=== PATIENT | male | born 1960 | race Caucasian/White ===

== ENCOUNTER 2016-07-31 22:48 | Emergency (ER) | payer SELFPAY ==
--- NOTE | 2016-08-01 06:30 | DIAGNOSTIC IMAGING REPORT ---
PROCEDURE: CTA THORAX WITH CONTRAST INDICATION: Left-sided chest pain, initial encounter TECHNIQUE: 90 ml of Isovue 370 was injected intravenously and axial images were obtained of the entire thorax with 3D sagittal and coronal MIP reconstructions. COMPARISON: Chest x-ray 08/01/2016 FINDINGS: No evidence of pulmonary emboli. Small left lower lobe consolidation with small left pleural effusion. Minor right basilar atelectasis. Mild left hilar adenopathy. 1.1 cm left thyroid nodule. Normal aorta without dissection or aneurysm. No coronary atherosclerosis. Heart size is normal. Normal visualized abdomen. Mild degenerative changes of the spine. IMPRESSION: 1. Left lower lobe pneumonia with small left pleural effusion 2. No evidence of pulmonary emboli 3. Results discussed with Dr. Gooden
--- NOTE | 2016-08-01 06:31 | DIAGNOSTIC IMAGING REPORT ---
PROCEDURE: XR CHEST 2 VIEW INDICATION: CHEST PAIN, initial encounter TECHNIQUE: PA and lateral view. COMPARISON: None. FINDINGS: Poor inspiration with small posterior left lower lobe infiltrate. Mild right basilar atelectasis. Cardiovascular structures are normal. Bony thorax is unremarkable. IMPRESSION: 1. Poor inspiration 2. Small left lower lobe infiltrate/atelectasis
--- NOTE | 2016-08-01 09:03 | ED CLINICAL REPORT ---
Clinical Report - Physicians/Mid Levels [facility] [address] [place] [address] 07/31/2016 22:50 Patient: NAYA KRUSE Time Seen: 23:14 Jul 31 2016. Arrived- By private vehicle. Historian- patient. CPT: ER phys charges level 5 plus (#[id number]). EKG interpretation (#[id number]). HISTORY OF PRESENT ILLNESS Chief Complaint: CHEST PAIN. At its maximum, severity described as moderate. When seen in the E.D., severity described as mild. Modifying factors. Not worsened by anything. Not relieved by anything. 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 ( sharp pain, crampy in nature. feels pressure like he has to move bowels but has done so today). He has had difficulty breathing and nausea. No sweating episodes, vomiting, fever or cough. and is still present. Onset during light activity. It is described as pressure, sharp and "pain" and it is described as located in the central chest and left chest area, substernal area and left arm. The patient has had difficulty breathing. Similar symptoms previously: None. Recent medical care: Not recently seen/assessed. REVIEW OF SYSTEMS No fever, chills, cough, pedal edema or calf pain. No fainting episodes, sore throat, blurred vision, abdominal pain or black stools. No difficulty with urination, skin rash, enlarged lymph nodes or joint pain. All systems otherwise negative, except as recorded above. PAST HISTORY No history of heart disease, lung disease, renal disease, neurological disease or other disease. No history of hypertension, hyperlipidemia or diabetes mellitus. Problems: no known problems. Additional Surgeries: no known surgeries. Medications: None. Allergies: Penicillins. SOCIAL HISTORY Never smoker. FAMILY HISTORY History of heart disease in multiple family members. ADDITIONAL NOTES The nursing notes have been reviewed. PHYSICAL EXAM Vital Signs: 07/31/2016 22:53 BP: 188/104. HR: 80. RR: 18. O2 saturation: 99%. Temp: 98.4 F. Appearance: Alert. No acute distress. Eyes: Pupils equal, round and reactive to light. Eyes normal inspection. ENT: Ears normal. Nose normal. Pharynx normal. Neck: Normal inspection. Neck supple. CVS: Normal heart rate and rhythm. Heart sounds normal. Pulses normal. Respiratory: No respiratory distress. Breath sounds normal. Chest nontender. Abdomen: Soft and nontender. Bowel sounds normal. Back: Normal external inspection. Skin: Skin warm. Normal skin color. No rash. Extremities: Extremities exhibit normal ROM. No calf tenderness. No lower extremity edema. Neuro: Oriented X 3. No motor deficit. No sensory deficit. Reflexes normal. LABS, X-RAYS, AND EKG Chest CT: Infiltrate in the left lower lobe. Chest CT performed with contrast. The study was independently viewed by me, interpreted by the radiologist and discussed with the radiologist. Laboratory Tests: Troponin-I: (JAY: 08/01/2016 03:45) ( [facility] [place]01[place] 04:08) Final results Test Result Flag Units (Reference) TROPONIN I <0.05 L ng/mL (0.00-1.5) TROPONIN REFERENCE RANGE:<0.1 NEGATIVE0.1-1.5 INDETERMINANT>1.5 POSITIVE CBC w Diff: (JAY: 07/31/2016 23:05) ( [facility] [place] 07/31/2016 23:44) Final results Test Result Flag Units (Reference) WHITE BLOOD COUNT 6.6 K/uL (4.5-11.5) RED BLOOD COUNT 5.13 M/uL (4.50-5.90) HEMOGLOBIN 14.2 gm/dL (13.5-17.5) HEMATOCRIT 44.1 % (41.0-53.0) MEAN CELL VOLUME 86 fL (80-100) MEAN CORPUSCULAR HGB 28 pg (26-34) MEAN CORPUSCULAR HGB CONC 32 g/dL (31-37) RED CELL DISTRIBUTION WIDTH 12.9 % (11.6-14.8) PLATELET COUNT 223 K/uL (150-400) LYMPH % 32.0 % (25-40) MONO % 3.2 % (3-14) GRANULOCYTE % 64.8 PT with INR: (JAY: 07/31/2016 23:05) ( [facility] [place] 07/31/2016 23:51) Final results Test Result Flag Units (Reference) INR 0.9 (0.8-1.2) Low Intensity Therapy: INR 1.5-2.0 PT range 18.5-23.1Mod.Intensity Therapy: INR 2.0-3.0 PT range 23.1-31.5High Intensity Therapy: INR 2.5-3.5 PT range 27.4-35.5High Intensity Therapy 2: INR 3.0-4.0 PT range 31.5-39.3 APTT 33 SECONDS (24-34) D-DIMER QUANTITATIVE 0.27 ug/mLFEU (0.27-0.52) The primary value of this quantitative assay relates toits negative predictive value (i.e. exclusion) of pulmonaryembolism/deep vein thrombosis/DIC.Elevated levels of d-dimer may also occur with:, age, cancer, inflammation, liver disease,post-op, infection, hematoma, coronary disease, peripheralarteriopathy, bleeding disorders and thrombolytic treatment.Results should be correlated with other clinical andradiological data.Testing Methodology: Latex Immunoassay BNP: (JAY: 07/31/2016 23:05) ( [facility] [place] 07/31/2016 23:56) Final results Test Result Flag Units (Reference) B-TYPE NATRIURETIC PEPTIDE 17 pg/ml (5-100) Lipase: (JAY: 07/31/2016 23:05) ( [facility] 08/01/2016 00:05) Final results Test Result Flag Units (Reference) LIPASE 125 U/L (73-393) AMYLASE 63 U/L (25-115) THYROID STIMULATING HORMONE 1.553 uIU/mL (0.30-3.74) C-REACTIVE PROTEIN 0.2 mg/dL (0.0-0.9) CHEM 13 PANEL: (JAY: 07/31/2016 23:05) ( [facility] 07/31/2016 23:56) Final results Test Result Flag Units (Reference) GLUCOSE 104 mg/dL (70-110) BUN 13 mg/dL (7-18) CREATININE 1.1 mg/dL (0.6-1.3) Estimated GFR >60 mL/min Estimated GFR- >60 mL/min Note: Persistent reduction over 3 months in eGFR<60 mL/min/1.73 m2 defines CKD. Patients with eGFR values>=60 mL/min/1.73 m2 may also have CKD if evidence ofpersistent proteinuria. Additional information may be foundat www.kidney.org. SODIUM 141 mmol/L (136-145) POTASSIUM 3.6 mmol/L (3.5-5.1) CHLORIDE 103 mmol/L (98-107) CARBON DIOXIDE 35 H mmol/L (21-32) CALCIUM 8.5 mg/dL (8.5-10.1) TOTAL PROTEIN 7.4 g/dL (6.4-8.2) ALBUMIN 4.1 g/dL (3.3-5.0) BILIRUBIN, TOTAL 0.4 mg/dL (0.0-1.0) ALKALINE PHOSPHATASE 74 U/L (46-116) AST (SGOT) 23 U/L (15-37) ALT (SGPT) 40 U/L (12-78) CPK 102 U/L (24-260) MAGNESIUM 2.1 mg/dL (1.8-2.4) TROPONIN I <0.05 L ng/mL (0.00-1.5) TROPONIN REFERENCE RANGE:<0.1 NEGATIVE0.1-1.5 INDETERMINANT>1.5 POSITIVE . PROGRESS AND PROCEDURES Course of Care: 08:42 08/01/16. Pt pain resolved after the toradol injection suggesting a musculoskeletal source for the pain. Troponin times 2 negative and EKG unchanged times 2. CT chest did r/o dissection and chest pathology. Due to abnormal EKG, Dr Villa, Cardiology called and case discussed. Dr Villa agrees with present treatment and will get patient in early next week for a ETT. Discussed LLL infiltrate with the patient and he remembers being told he had that in the past. He does not have cough or fever. Will cover for now and have PCP follow up. Discussed case with on-call health care provider, (Allen). Reviewed test results and need for additional work-up. Agreed upon treatment plan. Health care provider will see patient in office. Patient/family counseled. Disposition: Discharged. Condition: stable and improved. CLINICAL IMPRESSION Atypical chest pain .12 lead EKG performed. Abnormal EKG Left lower lobe infiltrate of unclear etiology. INSTRUCTIONS (Take an aspirin once a day.). Prescription Medications: Doxycycline 100 mg: Take 1 capsule orally every 12 hours for 10 days. No refill. Follow-up: Return to the emergency department if not well. 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 Wednesday. Understanding of the discharge instructions verbalized by patient. (Electronically signed by David Gooden MD 08/02/2016 21:54)
--- NOTE | 2016-08-01 09:03 | ED NURSING NOTES ---
Clinical Report - Nurses [facility] [address] [place] [address] 07/31/2016 22:50 Patient: NAYA KRUSE TRIAGE Triage time 22:53 Jul 31 2016. Acuity: LEVEL 3. Chief Complaint: CHEST PAIN and LEFT ARM PAIN, UPPER ABDOMINAL PAIN and SHORTNESS OF BREATH. 22:53 07/31/16. SEPSIS SCREEN: Sepsis Screen. Negative (no infection suspected/documented). --22:58 Taylor Danielle R.N. 22:53 07/31/16. BP: 188/104. HR: 80. RR: 18. O2 saturation: 99%. Temp: 98.4 F. Pain level now 6/10. --22:58 Taylor Danielle R.N. Weight: 90.7 kg stated. Height/Length: 70 inches Per Patient. BMI: 28.7. --22:52 Taylor Danielle R.N. Medications None. --22:54 Taylor Danielle R.N. Medication/allergy information source: the patient. --22:58 Taylor Danielle R.N. Allergies Penicillins. --22:54 Taylor Danielle R.N. History Arrived by private vehicle. Historian: patient. Accompanied by family. Onset. (3 hours ago). ( sharp pain, crampy in nature. feels pressure like he has to move bowels but has done so today). He has had difficulty breathing and nausea. No sweating episodes, vomiting, fever or cough. 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 PAST MEDICAL HX: Has not received pneumonia vaccine or seasonal influenza immunization. SOCIAL HX: Never smoker. No alcohol use or drug use. No infectious disease exposure. ABUSE ASSESSMENT: No report of abuse. SELF HARM ASSESSMENT: A self harm assessment was performed. The patient answered "no" to the question "Have you recently felt down, depressed, or hopeless?", "Have you noticed less interest or pleasure in doing things?", "Do you have thoughts of harming or killing yourself?", "Are you here because you tried to hurt yourself?", "Have you ever tried to hurt yourself before today?", "Have you recently had thoughts about harming or killing others?" and "Do you have any dangerous items in your possession?". FALL RISK ASSESSMENT: Fall risk assessment completed. No fall risk identified. NUTRITIONAL RISK ASSESSMENT: The nutritional risk assessment revealed no deficiencies. FUNCTIONAL ASSESSMENT: Functional assessment: no impairments noted. LEARNING NEEDS ASSESSMENT: The learning needs assessment revealed no barriers. SKIN INTEGRITY ASSESSMENT: Skin integrity risk assessment completed. No skin integrity risk identified. --22:58 Taylor Danielle R.N. PROBLEMS: no known problems. ADDITIONAL SURGERIES: no known surgeries. Interventions ID band on patient. --22:58 Taylor Danielle R.N. PHYSICAL ASSESSMENT 07:45 FIRST CONTACT WITH PT. --10:26 Ashlee Rivero R.N. 07:45. GENERAL / NEURO / PSYCH: Alert. Oriented X 4. Appears in no acute distress. RESPIRATORY: Respirations not labored. SKIN: Skin is warm and dry. --10:27 sAhlee Rivero R.N. NURSING PROGRESS NOTES 22:59 07/31/16. The initial plan of care for this patient includes an assessment with efforts to address the presence of pain; impairment of the cardiovascular system. This plan of care was discussed with the patient and family. satellite project site monitor, pulse oximeter and NIBP monitor placed on patient; manager cardiac- Lead II; monitor alarms on. Patient gowned. Reassurance given. Two patient identifiers checked. Side rails up x 1. Patient ready for evaluation. --22:59 Taylor Danielle R.N. EKG time: (2304 PM). EKG was ordered, performed by a tech and shown to the ED physician. --23:11 Sarah Beth Rosen 23:08 07/31/2016 Site #1 started via IV in the right antecubital space with an 18g angiocath, with aseptic technique and good blood return; one attempt. Blood drawn: rainbow set. Labeled in the presence of the patient and sent to the lab. Saline lock flushed with 10 mL saline. --23:13 RossOctoberLucy 23:51 07/31/16. BP: 156/90. HR: 64. RR: 18. O2 saturation: 99%. Pain level now 12/02. --23:51 Taylor Danielle R.N. 23:51 07/31/16. Cardiac rhythm: normal sinus rhythm. The patient is resting quietly. RESPIRATORY: Breath sounds normal. CVS: Normal sinus rhythm noted. SKIN: Skin is warm and dry. Skin color within normal limits. --23:51 Taylor Danielle R.N. Care transferred and report received (from DIANA Vazquez). --01:14 Lanette Noel R.N. 02:06 08/01/16. BP: 156/95. HR: 60. RR: 18 (unlabored). O2 saturation: 98% on room air. Pain level now: 10/02. --02:32 Lanette Noel R.N. 02:06 pt waiting for x-ray. --02:32 Lanette Noel R.N. 02:40 08/01/2016 Aspirin PO 325 mg given. Allergies verified and confirmed 5 rights. --02:40 Filiberto Bess R.N. 02:43 08/01/2016 Toradol IVP 30 mg given over 2 minute(s) via site #1. Allergies verified and confirmed 5 rights. IV patency established. IV site checked: no pain, redness, or swelling. IV flushed thoroughly pre- and post-medication administration. IVP given by RN. --02:43 Filiberto Bess R.N. 03:45 repeat troponin drawn from IV site. labeled in front of pt and sent to lab. --03:58 Lanette Noel R.N. EKG time: (0445 AM). EKG was ordered, performed by a tech and shown to the ED physician. --04:47 Sarah Beth Rosen 03:00 08/01/16. BP: 157/88. HR: 54. RR: 18. O2 saturation: 97% on room air. --05:04 Lanette Noel R.N. 04:10 08/01/16. BP: 173/80. HR: 60. RR: 18 (unlabored). O2 saturation: 97% on room air. Pain level now: 10/02. --05:05 Lanette Noel R.N. 04:10 pt waiting for repeat troponin result. pt continues to c/o chest pain 10/02. --05:06 Lanette Noel R.N. 04:45 08/01/16. BP: 166/90. HR: 57. RR: 18 (unlabored). O2 saturation: 96% on room air. Pain level now: 09/04. --05:07 Lanette Noel R.N. 05:[address] scan, states chest pain down to a 09/04. --05:08 Lanette Noel R.N. Patient transported to CT by stretcher with tech. --05:39 Lanette Noel R.N. Patient returned from CT by stretcher with tech. --05:49 Lanette Noel R.N. 05:00 08/01/16. BP: 168/86. HR: 64. RR: 18 (unlabored). O2 saturation: 97% on room air. --07:10 Lanette Noel R.N. 06:[address] results. pt denies pain at this time. --07:11 Lanette Noel R.N. 06:03 08/01/16. BP: 159/104. HR: 70. RR: 18 (unlabored). O2 saturation: 96% on room air. Pain level now: . --07:11 Lanette Noel R.N. Care transferred and report given (DIANA Rosado). --07:11 Lanette Noel R.N. 07:45 08/01/16. BP: 160/90. HR: 54. RR: 12. O2 saturation: 96% on room air. Pain level now: unknown. --07:47 Ashlee Rivero R.N. The patient is resting quietly. Overall patient status is the same- he states feels the same. RESPIRATORY: No respiratory distress. CVS: Cardiac rhythm: sinus bradycardia. SKIN: Skin is warm and dry. --07:47 Ashlee Rivero R.N. 09:20. The patient is calm and resting quietly. Overall patient status is improved- he states feels the same. RESPIRATORY: No respiratory distress. SKIN: Skin is warm and dry. --10:23 Ashlee Rivero R.N. 09:20 08/01/2016 Site #1 removed upon discharge. Catheter intact. Bandaid applied. --10:24 Ashlee Rivero R.N. DISPOSITION / DISCHARGE Departure time: 919. Condition at departure: improved and stable. No learning barriers present. Discharge instructions provided and reviewed with the patient. Reviewed medication(s). Prescription(s) given to the patient. Patient verbalized understanding. Written instructions provided in [place]. The patient was discharged home. He left the Emergency Department ambulatory and via private vehicle. FALL RISK ASSESSMENT: Fall risk assessment completed. No fall risk identified. --10:23 Ashlee Rivero R.N. 09:20 08/01/16. BP: 158/89. HR: 54. RR: 16. O2 saturation: 97% on room air. Pain level now: 08/04. --10:23 Ashlee Rivero R.N. Locked/Released at 08/01/2016 10:28 by Ashlee Rivero R.N.
--- NOTE | 2016-08-01 09:03 | ED ORDER SUMMARY ---
..... Patient: NAYA KRUSE OrderSheet [facility] VisitID: [id number] [address] [place] [address] 55y, M Registration Date/Time: 07/31/2016 ORDER SHEET Weight: 90.7 kg (stated) Allergies: Penicillins GENERAL ORDERS: Computer System Specialist (Continuous) (23:07/31/2016 EIndershay R.N. verbal order read back to Jessi COLLIER) (23:14 ABarnum R.N.) Pulse oximeter (23:07/31/2016 EIndershay R.N. verbal order read back to Jessi COLLIER) (23:14 Dungrntej R.N.) EKG - ER Stat (23:07/31/2016 Ashia R.N. verbal order read back to Jessi COLLIER) (23:08 CHagerty ER Microstrategy Architect Developer) Cardiac Panel Stat (23:07/31/2016 Jessi COLLIER) (23:30 CHagerty ER Microstrategy Architect Developer) PT with INR Urgent (23:29 07/31/2016 Jessi COLLIER) (23:30 CHagerty ER Microstrategy Architect Developer) PTT Urgent (23:29 07/31/2016 Jessi COLLIER) (23:30 CHagerty ER Microstrategy Architect Developer) BNP Urgent (23:29 07/31/2016 Jessi COLLIER) (23:30 CHagerty ER Microstrategy Architect Developer) D-Dimer Urgent (23:29 07/31/2016 Jessi COLLIER) (23:30 CHagerty ER Microstrategy Architect Developer) Amylase Urgent (23:29 07/31/2016 Jessi COLLIER) (23:30 CHagerty ER Microstrategy Architect Developer) Lipase Urgent (23:29 07/31/2016 Jessi COLLIER) (23:30 CHagerty ER Microstrategy Architect Developer) TSH Urgent (23:07/31/2016 Jessi COLLIER) (23:30 CHagerty ER Microstrategy Architect Developer) CRP Urgent (23:07/31/2016 Jessi COLLIER) (23:30 CHagerty ER Microstrategy Architect Developer) Chest 2V Urgent (02:16 08/01/2016 Jessi COLLIER) (Ack 2:18 CHagerty ER Microstrategy Architect Developer) (2:29 [place]) Troponin-I Urgent (03:28 08/01/2016 HKone R.N. verbal order read back to Jessi COLLIER) (Ack 3:45 CHagerty ER Microstrategy Architect Developer) (4:36 HKone R.N.) EKG - ER Stat (04:32 08/01/2016 Jessi COLLIER) (4:48 CHagerty ER Microstrategy Architect Developer) CTA Thorax w Cont (No) (N/A) Urgent (04:47 08/01/2016 Jessi COLLIER) (Ack 4:49 CHagerty ER Microstrategy Architect Developer) (5:50 CHagerty ER Microstrategy Architect Developer) MEDICATION ORDERS: Aspirin PO 325 mg (NOW) (02:20 08/01/2016 Jessi COLLIER) (Ack 2:32 HKone R.N.) (2:40 DBeyer R.N.) IV FLUIDS: IV Saline Lock (23:07 07/31/2016 Ashia R.NJordan verbal order read back to Jessi COLLIER) (23:14 ABarnum R.N.) Toradol IV 30 mg (NOW) (02:40 08/01/2016 Jessi COLLIER) (2:44 DBeyer R.N.) Toradol IV 30 mg (NOW) (02:41 08/01/2016 DBeyer R.N. verbal order read back to Jessi COLLIER) (2:43 DBeyer R.N.) ORDER SHEET NOTES: [Electronically signed by Ashlee Rivero R.N. (10:28 08/01/2016)] [Electronically signed by David Gooden MD (21:54 08/02/2016)] [Electronically locked/signed by Ashlee Rivero R.N. (10:28 08/01/2016)]
--- NOTE | 2016-08-01 09:03 | ED CLINICAL REPORT ---
Clinical Report - Physicians/Mid Levels [facility] [address] [place] [place] [address] 07/31/2016 22:50 Patient: NAYA KRUSE Time Seen: 23:14 Jul 31 2016. Arrived- By private vehicle. Historian- patient. CPT: ER phys charges level 5 plus (#[id number]). EKG interpretation (#[id number]). HISTORY OF PRESENT ILLNESS Chief Complaint: CHEST PAIN. At its maximum, severity described as moderate. When seen in the E.D., severity described as mild. Modifying factors. Not worsened by anything. Not relieved by anything. 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 ( sharp pain, crampy in nature. feels pressure like he has to move bowels but has done so today). He has had difficulty breathing and nausea. No sweating episodes, vomiting, fever or cough. and is still present. Onset during light activity. It is described as pressure, sharp and "pain" and it is described as located in the central chest and left chest area, substernal area and left arm. The patient has had difficulty breathing. Similar symptoms previously: None. Recent medical care: Not recently seen/assessed. REVIEW OF SYSTEMS No fever, chills, cough, pedal edema or calf pain. No fainting episodes, sore throat, blurred vision, abdominal pain or black stools. No difficulty with urination, skin rash, enlarged lymph nodes or joint pain. All systems otherwise negative, except as recorded above. PAST HISTORY No history of heart disease, lung disease, renal disease, neurological disease or other disease. No history of hypertension, hyperlipidemia or diabetes mellitus. Problems: no known problems. Additional Surgeries: no known surgeries. Medications: None. Allergies: Penicillins. SOCIAL HISTORY Never smoker. FAMILY HISTORY History of heart disease in multiple family members. ADDITIONAL NOTES The nursing notes have been reviewed. PHYSICAL EXAM Vital Signs: 07/31/2016 22:53 BP: 188/104. HR: 80. RR: 18. O2 saturation: 99%. Temp: 98.4 F. Appearance: Alert. No acute distress. Eyes: Pupils equal, round and reactive to light. Eyes normal inspection. ENT: Ears normal. Nose normal. Pharynx normal. Neck: Normal inspection. Neck supple. CVS: Normal heart rate and rhythm. Heart sounds normal. Pulses normal. Respiratory: No respiratory distress. Breath sounds normal. Chest nontender. Abdomen: Soft and nontender. Bowel sounds normal. Back: Normal external inspection. Skin: Skin warm. Normal skin color. No rash. Extremities: Extremities exhibit normal ROM. No calf tenderness. No lower extremity edema. Neuro: Oriented X 3. No motor deficit. No sensory deficit. Reflexes normal. LABS, X-RAYS, AND EKG Chest CT: Infiltrate in the left lower lobe. Chest CT performed with contrast. The study was independently viewed by me, interpreted by the radiologist and discussed with the radiologist. Laboratory Tests: Troponin-I: (JAY: 08/01/2016 03:45) ( [facility] Final results Test Result Flag Units (Reference) TROPONIN I <0.05 L ng/mL (0.00-1.5) TROPONIN REFERENCE RANGE:<0.1 NEGATIVE0.1-1.5 INDETERMINANT>1.5 POSITIVE CBC w Diff: (JAY: 07/31/2016 23:05) ( [facility] 07[facility] 23:44) Final results Test Result Flag Units (Reference) WHITE BLOOD COUNT 6.6 K/uL (4.5-11.5) RED BLOOD COUNT 5.13 M/uL (4.50-5.90) HEMOGLOBIN 14.2 gm/dL (13.5-17.5) HEMATOCRIT 44.1 % (41.0-53.0) MEAN CELL VOLUME 86 fL (80-100) MEAN CORPUSCULAR HGB 28 pg (26-34) MEAN CORPUSCULAR HGB CONC 32 g/dL (31-37) RED CELL DISTRIBUTION WIDTH 12.9 % (11.6-14.8) PLATELET COUNT 223 K/uL (150-400) LYMPH % 32.0 % (25-40) MONO % 3.2 % (3-14) GRANULOCYTE % 64.8 PT with INR: (JAY: 07/31/2016 23:05) ( [facility] 23:51) Final results Test Result Flag Units (Reference) INR 0.9 (0.8-1.2) Low Intensity Therapy: INR 1.5-2.0 PT range 18.5-23.1Mod.Intensity Therapy: INR 2.0-3.0 PT range 23.1-31.5High Intensity Therapy: INR 2.5-3.5 PT range 27.4-35.5High Intensity Therapy 2: INR 3.0-4.0 PT range 31.5-39.3 APTT 33 SECONDS (24-34) D-DIMER QUANTITATIVE 0.27 ug/mLFEU (0.27-0.52) The primary value of this quantitative assay relates toits negative predictive value (i.e. exclusion) of pulmonaryembolism/deep vein thrombosis/DIC.Elevated levels of d-dimer may also occur with:, age, cancer, inflammation, liver disease,post-op, infection, hematoma, coronary disease, peripheralarteriopathy, bleeding disorders and thrombolytic treatment.Results should be correlated with other clinical andradiological data.Testing Methodology: Latex Immunoassay BNP: (JAY: 07/31/2016 23:05) ( [facility] 23:56) Final results Test Result Flag Units (Reference) B-TYPE NATRIURETIC PEPTIDE 17 pg/ml (5-100) Lipase: (JAY: 07/31/2016 23:05) ( [facility] 08/01/2016 00:05) Final results Test Result Flag Units (Reference) LIPASE 125 U/L (73-393) AMYLASE 63 U/L (25-115) THYROID STIMULATING HORMONE 1.553 uIU/mL (0.30-3.74) C-REACTIVE PROTEIN 0.2 mg/dL (0.0-0.9) CHEM 13 PANEL: (JAY: 07/31/2016 23:05) ( [facility] 07/31/2016 23:56) Final results Test Result Flag Units (Reference) GLUCOSE 104 mg/dL (70-110) BUN 13 mg/dL (7-18) CREATININE 1.1 mg/dL (0.6-1.3) Estimated GFR >60 mL/min Estimated GFR- >60 mL/min Note: Persistent reduction over 3 months in eGFR<60 mL/min/1.73 m2 defines CKD. Patients with eGFR values>=60 mL/min/1.73 m2 may also have CKD if evidence ofpersistent proteinuria. Additional information may be foundat www.kidney.org. SODIUM 141 mmol/L (136-145) POTASSIUM 3.6 mmol/L (3.5-5.1) CHLORIDE 103 mmol/L (98-107) CARBON DIOXIDE 35 H mmol/L (21-32) CALCIUM 8.5 mg/dL (8.5-10.1) TOTAL PROTEIN 7.4 g/dL (6.4-8.2) ALBUMIN 4.1 g/dL (3.3-5.0) BILIRUBIN, TOTAL 0.4 mg/dL (0.0-1.0) ALKALINE PHOSPHATASE 74 U/L (46-116) AST (SGOT) 23 U/L (15-37) ALT (SGPT) 40 U/L (12-78) CPK 102 U/L (24-260) MAGNESIUM 2.1 mg/dL (1.8-2.4) TROPONIN I <0.05 L ng/mL (0.00-1.5) TROPONIN REFERENCE RANGE:<0.1 NEGATIVE0.1-1.5 INDETERMINANT>1.5 POSITIVE . PROGRESS AND PROCEDURES Course of Care: 08:42 08/01/16. Pt pain resolved after the toradol injection suggesting a musculoskeletal source for the pain. Troponin times 2 negative and EKG unchanged times 2. CT chest did r/o dissection and chest pathology. Due to abnormal EKG, Dr Villa, Cardiology called and case discussed. Dr Villa agrees with present treatment and will get patient in early next week for a ETT. Discussed LLL infiltrate with the patient and he remembers being told he had that in the past. He does not have cough or fever. Will cover for now and have PCP follow up. Discussed case with on-call health care provider, (Allen). Reviewed test results and need for additional work-up. Agreed upon treatment plan. Health care provider will see patient in office. Patient/family counseled. Disposition: Discharged. Condition: stable and improved. CLINICAL IMPRESSION Atypical chest pain .12 lead EKG performed. Abnormal EKG Left lower lobe infiltrate of unclear etiology. INSTRUCTIONS (Take an aspirin once a day.). Prescription Medications: Doxycycline 100 mg: Take 1 capsule orally every 12 hours for 10 days. No refill. Follow-up: Return to the emergency department if not well. Follow up with a community marketing manager they will call you on Wednesday to schedule your treadmill. Wednesday. Understanding of the discharge instructions verbalized by patient. (Electronically signed by David Gooden MD 08/02/2016 21:54)
--- NOTE | 2016-08-01 09:03 | ED ORDER SUMMARY ---
..... Patient: NAYA KRUSE OrderSheet [facility] VisitID: [id number] [address] [place] [address] 55y, M Registration Date/Time: 07/31/2016 ORDER SHEET Weight: 90.7 kg (stated) Allergies: Penicillins GENERAL ORDERS: Hydrologic Modeler (Continuous) (23:07/31/2016 EIndersahy R.N. verbal order read back to Jessi COLLIER) (23:14 ABarnum R.N.) Pulse oximeter (23:07/31/2016 EIndershay R.N. verbal order read back to Jessi COLLIER) (23:14 Dungrntej R.N.) EKG - ER Stat (23:07/31/2016 Ashia R.N. verbal order read back to Jessi COLLIER) (23:08 CHagerty ER Bpm Developer) Cardiac Panel Stat (23:07/31/2016 Jessi COLLIER) (23:30 CHagerty ER Bpm Developer) PT with INR Urgent (23:29 07/31/2016 Jessi COLLIER) (23:30 CHagerty ER Bpm Developer) PTT Urgent (23:29 07/31/2016 Jessi COLLIER) (23:30 CHagerty ER Bpm Developer) BNP Urgent (23:29 07/31/2016 Jessi COLLIER) (23:30 CHagerty ER Bpm Developer) D-Dimer Urgent (23:29 07/31/2016 Jessi COLLIER) (23:30 CHagerty ER Bpm Developer) Amylase Urgent (23:29 07/31/2016 Jessi COLLIER) (23:30 CHagerty ER Bpm Developer) Lipase Urgent (23:29 07/31/2016 Jessi COLLIER) (23:30 CHagerty ER Bpm Developer) TSH Urgent (23:07/31/2016 Jessi COLLIER) (23:30 CHagerty ER Bpm Developer) CRP Urgent (23:07/31/2016 Jessi COLLIER) (23:30 CHagerty ER Bpm Developer) Chest 2V Urgent (02:16 08/01/2016 Jessi COLLIER) (Ack 2:18 CHagerty ER Bpm Developer) (2:29 Madsion) Troponin-I Urgent (03:28 08/01/2016 HKone R.N. verbal order read back to Jessi COLLIER) (Ack 3:45 CHagerty ER Bpm Developer) (4:36 HKone R.N.) EKG - ER Stat (04:32 08/01/2016 Jessi COLLIER) (4:48 CHagerty ER Bpm Developer) CTA Thorax w Cont (No) (N/A) Urgent (04:47 08/01/2016 Jessi COLLIER) (Ack 4:49 CHagerty ER Bpm Developer) (5:50 CHagerty ER Bpm Developer) MEDICATION ORDERS: Aspirin PO 325 mg (NOW) (02:20 08/01/2016 Jessi COLLIER) (Ack 2:32 HKone R.N.) (2:40 DBeyer R.N.) IV FLUIDS: IV Saline Lock (23:07 07/31/2016 Ashia R.NJordan verbal order read back to Jessi COLLIER) (23:14 ABarnum R.N.) Toradol IV 30 mg (NOW) (02:40 08/01/2016 Jessi COLLIER) (2:44 DBeyer R.N.) Toradol IV 30 mg (NOW) (02:41 08/01/2016 DBeyer R.N. verbal order read back to Jessi COLLEIR) (2:43 DBeyer R.N.) ORDER SHEET NOTES: [Electronically signed by Ashlee Rivero R.N. (10:28 08/01/2016)] [Electronically signed by David Gooden MD (21:54 08/02/2016)] [Electronically locked/signed by Ashlee Rivero R.N. (10:28 08/01/2016)]
--- NOTE | 2016-08-01 09:03 | ED NURSING NOTES ---
Clinical Report - Nurses [facility] [address] [place] [address] 07/31/2016 22:50 Patient: NAYA KRUSE TRIAGE Triage time 22:53 Jul 31 2016. Acuity: LEVEL 3. Chief Complaint: CHEST PAIN and LEFT ARM PAIN, UPPER ABDOMINAL PAIN and SHORTNESS OF BREATH. 22:53 07/31/16. SEPSIS SCREEN: Sepsis Screen. Negative (no infection suspected/documented). --22:58 Taylor Danielle R.N. 22:53 07/31/16. BP: 188/104. HR: 80. RR: 18. O2 saturation: 99%. Temp: 98.4 F. Pain level now 6/10. --22:58 Taylor Danielle R.N. Weight: 90.7 kg stated. Height/Length: 70 inches Per Patient. BMI: 28.7. --22:52 Taylor Danielle R.N. Medications None. --22:54 Taylor Danielle R.N. Medication/allergy information source: the patient. --22:58 Taylor Danielle R.N. Allergies Penicillins. --22:54 Taylor Danielle R.N. History Arrived by private vehicle. Historian: patient. Accompanied by family. Onset. (3 hours ago). ( sharp pain, crampy in nature. feels pressure like he has to move bowels but has done so today). He has had difficulty breathing and nausea. No sweating episodes, vomiting, fever or cough. Treatment CLINICAL ASST: None. PAST MEDICAL HX: Has not received pneumonia vaccine or seasonal influenza immunization. SOCIAL HX: Never smoker. No alcohol use or drug use. No infectious disease exposure. ABUSE ASSESSMENT: No report of abuse. SELF HARM ASSESSMENT: A self harm assessment was performed. The patient answered "no" to the question "Have you recently felt down, depressed, or hopeless?", "Have you noticed less interest or pleasure in doing things?", "Do you have thoughts of harming or killing yourself?", "Are you here because you tried to hurt yourself?", "Have you ever tried to hurt yourself before today?", "Have you recently had thoughts about harming or killing others?" and "Do you have any dangerous items in your possession?". FALL RISK ASSESSMENT: Fall risk assessment completed. No fall risk identified. NUTRITIONAL RISK ASSESSMENT: The nutritional risk assessment revealed no deficiencies. FUNCTIONAL ASSESSMENT: Functional assessment: no impairments noted. LEARNING NEEDS ASSESSMENT: The learning needs assessment revealed no barriers. SKIN INTEGRITY ASSESSMENT: Skin integrity risk assessment completed. No skin integrity risk identified. --22:58 Taylor Danielle R.N. PROBLEMS: no known problems. ADDITIONAL SURGERIES: no known surgeries. Interventions ID band on patient. --22:58 Taylor Danielle R.N. PHYSICAL ASSESSMENT 07:45 FIRST CONTACT WITH PT. --10:26 Ashlee Rivero R.N. 07:45. GENERAL / NEURO / PSYCH: Alert. Oriented X 4. Appears in no acute distress. RESPIRATORY: Respirations not labored. SKIN: Skin is warm and dry. --10:27 Ashlee Rivero R.N. NURSING PROGRESS NOTES 22:59 07/31/16. The initial plan of care for this patient includes an assessment with efforts to address the presence of pain; impairment of the cardiovascular system. This plan of care was discussed with the patient and family. monitor technician, pulse oximeter and NIBP monitor placed on patient; vehicle monitor technician- Lead II; monitor alarms on. Patient gowned. Reassurance given. Two patient identifiers checked. Side rails up x 1. Patient ready for evaluation. --22:59 Taylor Danielle R.N. EKG time: (2304 PM). EKG was ordered, performed by a tech and shown to the ED physician. --23:11 Sarah Beth Rosen 23:08 07/31/2016 Site #1 started via IV in the right antecubital space with an 18g angiocath, with aseptic technique and good blood return; one attempt. Blood drawn: rainbow set. Labeled in the presence of the patient and sent to the lab. Saline lock flushed with 10 mL saline. --23:13 RossOctoberLucy 23:51 07/31/16. BP: 156/90. HR: 64. RR: 18. O2 saturation: 99%. Pain level now 12/02. --23:51 Taylor Danielle R.N. 23:51 07/31/16. Cardiac rhythm: normal sinus rhythm. The patient is resting quietly. RESPIRATORY: Breath sounds normal. CVS: Normal sinus rhythm noted. SKIN: Skin is warm and dry. Skin color within normal limits. --23:51 Taylor Danielle R.N. Care transferred and report received (from DIANA Vazquez). --01:14 Lanette Noel R.N. 02:06 08/01/16. BP: 156/95. HR: 60. RR: 18 (unlabored). O2 saturation: 98% on room air. Pain level now: 10/02. --02:32 Lanette Noel R.N. 02:06 pt waiting for x-ray. --02:32 Lanette Noel R.N. 02:40 08/01/2016 Aspirin PO 325 mg given. Allergies verified and confirmed 5 rights. --02:40 Filiberto Bess R.N. 02:43 08/01/2016 Toradol IVP 30 mg given over 2 minute(s) via site #1. Allergies verified and confirmed 5 rights. IV patency established. IV site checked: no pain, redness, or swelling. IV flushed thoroughly pre- and post-medication administration. IVP given by RN. --02:43 Filiberto Bess R.N. 03:45 repeat troponin drawn from IV site. labeled in front of pt and sent to lab. --03:58 Lanette Noel R.N. EKG time: (0445 AM). EKG was ordered, performed by a tech and shown to the ED physician. --04:47 Sarah Beth Rosen 03:00 08/01/16. BP: 157/88. HR: 54. RR: 18. O2 saturation: 97% on room air. --05:04 Lanette Noel R.N. 04:10 08/01/16. BP: 173/80. HR: 60. RR: 18 (unlabored). O2 saturation: 97% on room air. Pain level now: 10/02. --05:05 Lanette Noel R.N. 04:10 pt waiting for repeat troponin result. pt continues to c/o chest pain 10/02. --05:06 Lanette Noel R.N. 04:45 08/01/16. BP: 166/90. HR: 57. RR: 18 (unlabored). O2 saturation: 96% on room air. Pain level now: 09/04. --05:07 Lanette Noel R.N. 05:[address] scan, states chest pain down to a 09/04. --05:08 Lanette Noel R.N. Patient transported to CT by stretcher with tech. --05:39 Lanette Noel R.N. Patient returned from CT by stretcher with tech. --05:49 Lanette Noel R.N. 05:00 08/01/16. BP: 168/86. HR: 64. RR: 18 (unlabored). O2 saturation: 97% on room air. --07:10 Lanette Noel R.N. 06:[address] results. pt denies pain at this time. --07:11 Lanette Noel R.N. 06:03 08/01/16. BP: 159/104. HR: 70. RR: 18 (unlabored). O2 saturation: 96% on room air. Pain level now: . --07:11 Lanette Noel R.N. Care transferred and report given (DIANA Rosado). --07:11 Lanette Noel R.N. 07:45 08/01/16. BP: 160/90. HR: 54. RR: 12. O2 saturation: 96% on room air. Pain level now: unknown. --07:47 Ashlee Rivero R.N. The patient is resting quietly. Overall patient status is the same- he states feels the same. RESPIRATORY: No respiratory distress. CVS: Cardiac rhythm: sinus bradycardia. SKIN: Skin is warm and dry. --07:47 Ashlee Rivero R.N. 09:20. The patient is calm and resting quietly. Overall patient status is improved- he states feels the same. RESPIRATORY: No respiratory distress. SKIN: Skin is warm and dry. --10:23 Ashlee Rivero R.N. 09:20 08/01/2016 Site #1 removed upon discharge. Catheter intact. Bandaid applied. --10:24 Ashlee Rivero R.N. DISPOSITION / DISCHARGE Departure time: 919. Condition at departure: improved and stable. No learning barriers present. Discharge instructions provided and reviewed with the patient. Reviewed medication(s). Prescription(s) given to the patient. Patient verbalized understanding. Written instructions provided in Thai. The patient was discharged home. He left the Emergency Department ambulatory and via private vehicle. FALL RISK ASSESSMENT: Fall risk assessment completed. No fall risk identified. --10:23 Ashlee Rivero R.N. 09:20 08/01/16. BP: 158/89. HR: 54. RR: 16. O2 saturation: 97% on room air. Pain level now: 08/04. --10:23 Ashlee Rivero R.N. Locked/Released at 08/01/2016 10:28 by Ashlee Rivero R.N.
--- NOTE | 2016-08-02 21:54 | ED MAR SUMMARY ---
..... Medication Administration Record [facility] [address] [place] [address] Patient: NAYA KRUSE Visit ID: [id number] 55y, M Weight: 90.7 kg Height/Length: 70 in BMI: 28.7 ALLERGIES: Penicillins Given 02:40 08/01/2016 Filiberto Bess R.N. Medication Administered: ASPIRIN [PO], Dose: 325 mg PO. Medication Ordered: Aspirin PO 325 mg (NOW). Given 02:43 08/01/2016 Filiberto Bess RJordanNJordan Medication Administered: TORADOL [IVP], Dose: 30 mg IVP over 2 minute(s), Site: #1 right AC. Medication Ordered: Toradol IV 30 mg (NOW).
--- NOTE | 2016-08-02 21:54 | ED MAR SUMMARY ---
..... Medication Administration Record [facility] [address] [place] [address] Patient: NAYA KRUSE Visit ID: [id number] 55y, M Weight: 90.7 kg Height/Length: 70 in BMI: 28.7 ALLERGIES: Penicillins Given 02:40 08/01/2016 Filiberto Bess R.N. Medication Administered: ASPIRIN [PO], Dose: 325 mg PO. Medication Ordered: Aspirin PO 325 mg (NOW). Given 02:43 08/01/2016 Filiberto Bess RJordanNJordan Medication Administered: TORADOL [IVP], Dose: 30 mg IVP over 2 minute(s), Site: #1 right AC. Medication Ordered: Toradol IV 30 mg (NOW).
--- NOTE | 2016-08-02 21:54 | ED DISCHARGE INSTRUCTIONS ---
Patient: NAYA KRUSE General Instructions [facility] VisitID: [id number] [address] [place] [address] 55y, M Registration Date/Time: 07/31/2016 Atypical chest pain .12 lead EKG performed. Abnormal EKG Left lower lobe infiltrate of unclear etiology. INSTRUCTIONS (Take an aspirin once a day.). Prescription Medications: Doxycycline 100 mg: Take 1 capsule orally every 12 hours for 10 days. No refill. Follow-up: Return to the emergency department if not well. Follow up with a phlebotomist prn they will call you on Wednesday to schedule your treadmill. Wednesday. Understanding of the discharge instructions verbalized by patient. ADDITIONAL INFORMATION Chest Pain, Uncertain Cause Chest pain can happen for a number of reasons. Sometimes the cause can not be determined. If yourcondition does not seem serious, and your pain does not appear to be coming from your heart, your doctor may recommend watching it closely. Sometimes the signs of a serious problem take more time to appear. Therefore, watch for the warning signs listed below. Home care After your visit, follow these recommendations: Rest today and avoid strenuous activity. Take any prescribed medicine as directed. Follow-up care Follow up with your doctor or this facility as instructed or if you do not start to feel better within 24 hours. Call 911 Get immediate medical attention if any of the following occur: A change in the type of pain: if it feels different, becomes more severe, lasts longer, or begins to spread into your shoulder, arm, neck, jaw or back Shortness of breath or increased pain with breathing Weakness, dizziness, or fainting Rapid heart beat Get prompt medical attention Call your doctor right away if any of the following occur: Cough with dark colored sputum (phlegm) or blood Fever of 100.4F(38C) or higher, or as directed by your health care provider Swelling, pain or redness in one leg You have been given the following additional information: Chest Pain, Uncertain Cause (Electronically signed by David Gooden MD 08/02/2016 21:54)
--- NOTE | 2016-08-02 21:54 | ED MED RECONCILIATION SUMMARY ---
Patient: NAYA KRUSE Medication Reconciliation Report [facility] VisitID: [id number] [address] [place] [address] 55y, M Registration Date/Time: 07/31/2016 Weight: 90.7 kg Height/Length: 70 in. BMI: 28.7 ALLERGIES: Penicillins The patient's Home Medications are listed below: NONE. The source(s) of the original Home Medication information: patient The following Medications were given to the patient in the Emergency Department: Aspirin [PO] PO 325 mg, administered: 08/01/2016 2:40:00 AM Toradol [IVP] IVP 30 mg, administered: 08/01/2016 2:43:00 AM The following Medications were prescribed to the patient: Doxycycline 100 mg: Take 1 capsule orally every 12 hours for 10 days. No refill. -- David Gooden MD
--- NOTE | 2016-08-02 21:54 | ED MED RECONCILIATION SUMMARY ---
Patient: NAYA KRUSE Medication Reconciliation Report [facility] VisitID: [id number] [address] [place] [address] 55y, M Registration Date/Time: 07/31/2016 Weight: 90.7 kg Height/Length: 70 in. BMI: 28.7 ALLERGIES: Penicillins The patient's Home Medications are listed below: NONE. The source(s) of the original Home Medication information: patient The following Medications were given to the patient in the Emergency Department: Aspirin [PO] PO 325 mg, administered: 08/01/2016 2:40:00 AM Toradol [IVP] IVP 30 mg, administered: 08/01/2016 2:43:00 AM The following Medications were prescribed to the patient: Doxycycline 100 mg: Take 1 capsule orally every 12 hours for 10 days. No refill. -- David Gooden MD
--- NOTE | 2016-08-02 21:54 | ED DISCHARGE INSTRUCTIONS ---
Patient: NAYA KRUSE General Instructions [facility] VisitID: [id number] Rodolfo [place]írez [place] [address] 55y, M Registration Date/Time: 07/31/2016 Atypical chest pain .12 lead EKG performed. Abnormal EKG Left lower lobe infiltrate of unclear etiology. INSTRUCTIONS (Take an aspirin once a day.). Prescription Medications: Doxycycline 100 mg: Take 1 capsule orally every 12 hours for 10 days. No refill. Follow-up: Return to the emergency department if not well. 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 Wednesday. Understanding of the discharge instructions verbalized by patient. ADDITIONAL INFORMATION Chest Pain, Uncertain Cause Chest pain can happen for a number of reasons. Sometimes the cause can not be determined. If yourcondition does not seem serious, and your pain does not appear to be coming from your heart, your doctor may recommend watching it closely. Sometimes the signs of a serious problem take more time to appear. Therefore, watch for the warning signs listed below. Home care After your visit, follow these recommendations: Rest today and avoid strenuous activity. Take any prescribed medicine as directed. Follow-up care Follow up with your doctor or this facility as instructed or if you do not start to feel better within 24 hours. Call 911 Get immediate medical attention if any of the following occur: A change in the type of pain: if it feels different, becomes more severe, lasts longer, or begins to spread into your shoulder, arm, neck, jaw or back Shortness of breath or increased pain with breathing Weakness, dizziness, or fainting Rapid heart beat Get prompt medical attention Call your doctor right away if any of the following occur: Cough with dark colored sputum (phlegm) or blood Fever of 100.4F(38C) or higher, or as directed by your health care provider Swelling, pain or redness in one leg You have been given the following additional information: Chest Pain, Uncertain Cause (Electronically signed by David Gooden MD 08/02/2016 21:54)
== END 2016-08-01 09:20 | disposition home or self-care (01) ==
LOC: ED SRH 22:48
DX: R07.89 Other chest pain (principal); R91.8 Other nonspecific abnormal finding of lung field; R94.31 Abnormal electrocardiogram [ECG] [EKG]; Z88.0 Allergy status to penicillin
CPT/HCPCS: 90100; 90616; 91320; 91556; 91585; 92235; 92530; 92610; 92720; 93140; 94001; 94060; 95059